=== PATIENT | female | born 1945 | race Caucasian/White ===

== ENCOUNTER 2022-01-29 18:01 | Emergency (ER) | payer MEDICARE, OTHER, SELFPAY ==
[2022-01-29] VITALS (9 sets, daily range): BP systolic 100–147; BP diastolic 52–98; PULSE 55–72; RESP 18; TEMP 36.7; O2SAT 92–97; BMI 24.0
--- NOTE | 2022-01-29 19:14 | CTR_ITS ---
PROCEDURE INFORMATION: Exam: CT Head Without Contrast Exam date and time: 01/29/2022 7:44 PM Age: 76 years old Clinical indication: Altered mental status/memory loss; Confusion or disorientation; Additional info: AMS TECHNIQUE: Imaging protocol: Computed tomography of the head without contrast. Radiation optimization: All CT scans at this facility use at least one of these dose optimization techniques: automated exposure control; mA and/or kV adjustment per patient size (includes targeted exams where dose is matched to clinical indication); or iterative reconstruction. COMPARISON: No relevant prior studies available. RADIATION DOSE METRICS: Total DLP (mGy-cm): 732.11 FINDINGS: Brain: There is marked cerebral atrophy. There is moderate diffuse heterogeneity of the white matter attenuation, consistent with chronic white matter ischemic changes. Negative for intracranial hemorrhage. No midline shift of the brain. [place] matter and white matter interfaces are preserved. Cerebral ventricles: No ventriculomegaly. Paranasal sinuses: Visualized sinuses are unremarkable. No fluid levels. Mastoid air cells: Visualized mastoid air cells are well aerated. Orbital cavities: Symmetry of the orbits. Lens replacements. Vasculature: Scattered intracranial atherosclerosis. Bones/joints: Degenerative changes of the temporomandibular joints. Soft tissues: Unremarkable. CT/CT head wo con* [id number] IMPRESSION: 1. Negative for acute intracranial abnormality. 2. Senescent brain changes.
--- NOTE | 2022-01-29 19:15 | ECG_ITS ---
[facility] Test Date: 2022-01-29 Pat Name: Katia Pearson Department: Room: Gender: Female [employer]: : 1945 Requested By: Simon Gilman Order Number: [id number] Luis MD: Elissa Maradiaga M.D. Measurements Intervals [place] Rate: 45 P: 56 NM: 184 QRS: 75 QRSD: 95 T: 71 QT: 454 QTc: 395 Interpretive Statements SINUS BRADYCARDIA No previous ECG available for comparison Electronically Signed On 01-30-2022 17:38:17 CDT by Elissa Maradiaga M.D. [id number]
--- NOTE | 2022-01-29 20:16 | ED_ITS ---
Documented by User: Simon Gilman MD 01/30/22 23:12 HPI - General Adult General: Chief complaint: Psychiatric Symptoms Stated complaint: PSYCH EVAL Time Seen by Provider: 01/29/22 19:14 History of Present Illness: HPI: [76]yo patient w/ hx of depression BIBA for statements of SI at the pharmacy after patient was denied pain medication refill. On arrival, the patient is AAOx3 and cooperative with my evaluation. No focal complaints of chest pain, shortness of breath, palpitations, N/V, focal GI/ complaints. Currently denies SI/HI. No complaints of hallucinations. Onset: chronic Duration: ongoing Location: home Severity: severe Associated symptoms: Deny chest pain, dyspnea, nausea, rash, palpitations or vomiting Review of Systems Const: Denies: fever(s) or chills Eyes: Denies: change in vision ENMT: Denies: mouth pain Card: Denies: chest pain or palpitations Resp: Denies: dyspnea or non-productive cough GI: Denies: abdominal pain, nausea, vomiting or diarrhea : Denies: dysuria Musc: Denies: extremity pain Skin/Breast: Denies: rash or new lesions Neuro: Denies: weakness in extremities Psych: Reports: other (Normal mood) Trevor/Lymph: Denies: easy bruising PFSH ED PFSH: Medical History Chronic pain Social History Smoking and tobacco status: never smoked Alcohol intake: never Physical Exam Const: COMMON NORMALS: alert HENMT: COMMON NORMALS: atraumatic HEAD & SCALP: atraumatic MOUTH: moist mucous membranes not abnormal Eye: COMMON NORMALS: EOMs intact bilaterally and conjunctivae normal CONJUNCTIVA: Yes conjunctivae normal Neck/C-Spine: COMMON NORMALS: full ROM and supple Resp: COMMON NORMALS: normal respiratory effort and clear to auscultation bilaterally AUSCULTATION: clear to auscultation bilaterally Cardio: COMMON NORMALS: regular rate RATE: regular rate GI: COMMON NORMALS: Soft to palpation and non-tender PALPATION: Yes Soft to palpation Extremity: COMMON NORMALS: full ROM Neuro: SENSORIUM/ORIENTATION: Yes alert MOTOR EXAM: No Abnormal motor strength present and Other motor observations present (no focal motor deficits) Psych: COMMON NORMALS: speech normal SPEECH: Yes normal speech MOOD & AFFECT: Yes euthymic mood Course Vital Signs: Vital signs: Vital Signs Temperature 97.7 F 01/30/22 09:39 Pulse Rate 81 01/30/22 17:30 Respiratory Rate 18 01/30/22 14:30 Blood Pressure 134/91 01/30/22 17:30 Pulse Oximetry 99 01/30/22 17:30 MDM - General Adult Medical Decision Making [76]yo patient w/ hx of chronic pain presenting for statements of SI after she was denied pain medicine refills. HDS, exam within normal limit Thoughts are linear and organized, and the patient has no AH/VH, or HI. Clinically the patient displays no overt toxidrome; they are well appearing, with low suspicion for toxic ingestion given history and exam. Symptoms unlikely 2/2 anemia, hypothyroidism, infection, or ICH. Workup: CBC, CMP, Lipase, salicylate/tylenol, TSH/free T4, EKG, UDS, covid antigen Lab findings: wnl, +opiate/marijuana/benzo in the urine [10:08] On reassessment, labs and workup wnl. Patient is hemodynamically stable with no acute medical complaints. Case discussed with psychiatric provider Dr. Deal at [facility] inpatient who evaluated patient via telepsych and recommended that I determine whether patient has any friend who can watch her overnight. I contacted Candy Morgan who tells me at the present time she cannot take care of the patient tonight. Patient tells me that she still has access to firearm. I performed a shared decision making with Dr. Deal who tells me that it is safer for patient to be admitted to [facility] at this time unless we can ensure that she has no access to firearm or a family member can watch over her. Disposition: Transfer to [facility] facility Patient care handoff received from Dr. Wright pending finalize recommendations by psychiatry service with likely plan for discharge. Dr. Deal with the psychiatry service did see and evaluate the patient. He does not believe, based on assessment, that the patient requires inpatient management of psychiatric concerns. In discussion with the patient she expresses that she made statements just out of frustration and has no intent/would never actually hurt herself or anyone else. In discussion with Dr. Deal and with the patient I did attempt to clarify that the patient's prescription problem. I talked to [facility] and apparently her hydrocodone?acetaminophen was mailed today. The ox ymorphone is missing a quantity to be dispensed and they have reached back out to the patient's prescribing physician. I did attempt to reach Dr. Rose however his office is closed and does not have a answering service. I explained the current status with the patient, she reports that she will attempt to manage at home and feels comfortable with discharge. Plan to follow-up with prescribing physician. Koko Molina MD Emergency Medicine Lab Data : 01/29/22 20:28 01/29/22 20: Radiology Impressions Head CT 01/29/22 19:14 IMPRESSION: 1. Negative for acute intracranial abnormality. 2. Senescent brain changes. Chest X-Ray 01/29/22 22:44 IMPRESSION: No acute findings. Laboratory Results WBC 7.9 10^3/uL (4.0-10.0) 01/29/22: RBC 4.23 10^6/uL (4.1-5.3) 01/29/22: Hgb 13.1 g/dL (11.5-15.3) 01/29/22: Hct 40.3 % (37.0-47.0) 01/29/22: MCV 95.3 fl (81-99) 01/29/22: MCH 31.0 pg (28.0-34.0) 01/29/22: MCHC 32.5 g/dL (30.0-36.0) 01/29/22: RDW 12.9 % (12.1-15.1) 01/29/22: Plt Count 204 10^3/cmm (130-400) 01/29/22: MPV 9.1 fL (7.4-10.4) 01/29/22: Neut % (Auto) 55.2 % 01/29/22: Lymph % (Auto) 35.2 % 01/29/22: [place] % (Auto) 6.6 % 01/29/22: Eos % (Auto) 1.9 % 01/29/22: Baso % (Auto) 0.8 % 01/29/22: Neut # (Auto) 4.34 10^3/uL (1.8-7.7) 01/29/22: Lymph # (Auto) 2.8 10^3/uL (0.8-4.8) 01/29/22: [place] # (Auto) 0.5 10^3/uL (0.2-0.9) 01/29/22 Eos # (Auto) 0.2 10^3/uL (0.0-0.8) 01/29/22 Baso # (Auto) 0.1 10^3/uL (0.0-0.1) 01/29/22 Nucleated RBC % (auto) 0 % 01/29/22 Nucleated RBCs # 0.0 /100WBC 01/29/22 Sodium 140 mmol/L (136-145) 01/29/22: Potassium 3.9 mmol/L (3.5-5.1) 01/29/22 Chloride 103 mmol/L (98-107) 01/29/22 Carbon Dioxide 26 mmol/L (22-29) 01/29/22: Anion Gap 14.9 (5-19) 01/29/22: BUN 9 mg/dL (8-23) 01/29/22 Creatinine 0.6 mg/dL (0.5-0.9) 01/29/22 GFR Calculation Not Reportable 01/29/22 Glucose 102 mg/dL (65-115) 01/29/22 Calculated Osmolality 289 mOsm/kg (285-295) 01/29/22 Calcium 9.1 mg/dL (8.5-10.5) 01/29/22 Total Bilirubin 0.5 mg/dL (0.15-1.2) 01/29/22 AST 13 U/L (0-32) 01/29/22 ALT 8 U/L (0-33) 01/29/22: Alkaline Phosphatase 85 IU/L (35-105) 01/29/22 Total Protein 7.1 g/dL (6.6-8.7) 01/29/22 Albumin 4.0 g/dL (3.5-5.2) 01/29/22 Globulin 3.1 g/dL (1.3-4.6) 01/29/22 Lipase 16 U/L (13-60) 01/29/22 TSH 1.73 uIU/mL (0.27-4.20) 01/29/22 Free T4 1.01 ng/dL (0.82-1.77) 01/29/22 Urine Color Yellow (Yellow) 01/29/22 Urine Appearance Hazy (CLEAR) A 01/29/22 Urine pH 5 (5-7) 01/29/22 Ur Specific [place] 1.020 (1.005-1.030) 01/29/22 Urine Protein Neg (Negative) 01/29/22 Urine Glucose (UA) Norm (Normal) 01/29/22 Urine Ketones 1+ (Negative) H 01/29/22 Urine Blood 2+ (Negative) H 01/29/22 Urine Nitrate Positive (Negative) H 01/29/22 Urine Bilirubin Neg (Negative) 01/29/22 Urine Urobilinogen Norm mg/dL (Negative) 01/29/22 Ur Leukocyte Esterase 1+ (Negative) H 01/29/22 Urine RBC 0-4 /hpf (0-2) H 01/29/22 Urine WBC 40-55 /hpf (0-5) H 01/29/22 Ur Squamous Epith Cells 5-10 /hpf (0-5) H 01/29/22 Amorphous Sediment Not Reportable 01/29/22 Urine Bacteria 4+ /hpf (NONE) H 01/29/22 Salicylates < 0.3 mg/dL (3-10) L 01/29/22 Urine Opiates Screen Positive ng/mL (Negative) H 01/29/22 Acetaminophen < 5.0 ug/mL (10-30) L 01/29/22 Ur Barbiturates Screen Negative ng/mL (Negative) 05/15/22 20:28 Ur Phencyclidine Scrn Negative ng/mL (Negative) 01/29/22 20:28 Ur Amphetamines Screen Negative ng/mL (Negative) 01/29/22 20:28 U Benzodiazepines Scrn Positive ng/mL (Negative) H 01/29/22 20:28 Urine Cocaine Screen Negative ng/mL (Negative) 01/29/22 20:28 U Marijuana (THC) Screen Positive ng/mL (Negative) H 01/29/22 20:28 SARS-CoV-2 Ag (Rapid) Negative (Negative) 01/29/22 20:35 Discharge Plan Discharge Patient Disposition: Home Clinical Impression: Verbalizes suicidal thoughts, Chronic pain, Acute UTI Prescriptions: New cefdinir 300 mg capsule 300 mg PO BID 10 Days Qty: 20 0RF No Action ondansetron HCl 4 mg tablet 4 mg PO Q6H PRN (Reason: Nausea And Vomiting) 0RF hydrocodone-acetaminophen 10-325 mg tablet 1 - 2 tab PO Q6H PRN (Reason: Pain) 0RF diazepam 10 mg tablet 10 mg PO BID PRN (Reason: Anxiety) 0RF oxymorphone 5 mg tablet 10 mg PO BEDTIME 0RF Discharge Orders: Discharge ED (Routine); Ordered 01/30/22 Ordered By: Koko Molina Discharge Diet: Usual diet Discharge Activity: Increase activity as tolerated Patient Instructions: Urinary Tract Infection in Women (ED), Chronic Pain (ED) Activity Restrictions/Additional Instructions: Thank you for visiting the emergency department. You were seen and evaluated for concern for suicidal statements. After evaluation by psychiatry I believe that it is safe for you to be discharged home. As discussed, [facility] reports that they mailed your hydrocodone?acetaminophen today. Please contact your prescribing provider tomorrow regarding the problem with your prescription. Please follow-up with your primary care provider. Please establish with a primary care provider if you do not currently have 1. Return to the emergency department for thoughts of hurting yourself or others, or anything else that you are concerned about a feel needs emergency department evaluation. Coding Level of Care Code ED Superintendent [employer] for [employer] Fwd Exam Comprehensive Documented by User: Osmany Wright DO 01/31/22 14:47 HPI - General Adult General: Chief complaint: Psychiatric Symptoms Stated complaint: PSYCH EVAL Time Seen by Provider: 01/29/22 19:14 [facility] ED PFSH: Medical History Chronic pain Social History Smoking and tobacco status: never smoked Alcohol intake: never Course Vital Signs: Vital signs: Vital Signs Temperature 97.7 F 01/30/22 09:39 Pulse Rate 81 01/30/22 17:30 Respiratory Rate 18 01/30/22 14:30 Blood Pressure 134/91 01/30/22 17:30 Pulse Oximetry 99 01/30/22 17:30 MDM - General Adult Medical Decision Making [76]yo patient w/ hx of chronic pain presenting for statements of SI after she was denied pain medicine refills. HDS, exam within normal limit Thoughts are linear and organized, and the patient has no AH/VH, or HI. Clinically the patient displays no overt toxidrome; they are well appearing, with low suspicion for toxic ingestion given history and exam. Symptoms unlikely 2/2 anemia, hypothyroidism, infection, or ICH. Workup: CBC, CMP, Lipase, salicylate/tylenol, TSH/free T4, EKG, UDS, covid anti gen Lab findings: wnl, +opiate/marijuana/benzo in the urine [10:08] On reassessment, labs and workup wnl. Patient is hemodynamically stable with no acute medical complaints. Case discussed with psychiatric provider Dr. Deal at [facility] inpatient who evaluated patient via telepsy ch and recommended that I determine whether patient has any friend who can watch her overnight. I contacted Candy Mora who tells me at the present time she cannot take care of the patient tonight. Patient tells me that she still has access to firearm. I performed a shared decision making with Dr. Deal who tells me that it is safer for patient to be admitted to [facility] at this time unless we can ensure that she has no access to firearm or a family member can watch over her. Disposition: Transfer to [facility] facility We have been attempting to transfer to [facility]. Psych consult recommended that we could potentially send the patient home if we met certain criteria. Were getting is clarified they are wanting us to ensure that there is no firearms in the home and that her medications have been arranged for her. Care turned over to Dr. Walton change of shift. Patient care handoff received from Dr. Wright pending finalized recommendations by psychiatry service with likely plan for discharge. Dr. Deal with the psychiatry service did see and evaluate the patient. He does not believe, based on assessment, that the patient requires inpatient management of psychiatric concerns. In discussion with the patient she expresses that she made statements just out of frustration and has no intent/would never actually hurt herself or anyone else. I agree that she is not currently suicidal. I did attempt to clarify that the patient's prescription problem. I talked to [facility] and apparently her hydrocodone?acetaminophen was mailed today. The oxymorphone is missing a quantity to be dispensed and they have reached back out to the patient's prescribing physician. I did attempt to reach Dr. Rose however his office is closed and does not have a answering service. I explained the current status with the patient, she reports that she will attempt to fallon ge at home and feels comfortable with discharge. She denies suicidal or homicidal ideation. Firearms have reportedly been removed from her house by her friend. Plan to follow-up with prescribing physician. Koko Molina MD Emergency Medicine Lab Data : 01/29/22 20:28 01/29/22 20:[address] 01/29/22 19:14 IMPRESSION: 1. Negative for acute intracranial abnormality. 2. Senescent brain changes. Chest X-Ray 01/29/22 22:44 IMPRESSION: No acute findings. Laboratory Results WBC 7.9 10^3/uL (4.0-10.0) 01/29/22 20:28 RBC 4.23 10^6/uL (4.1-5.3) 01/29/22 20:28 Hgb 13.1 g/dL (11.5-15.3) 01/29/22 20:28 Hct 40.3 % (37.0-47.0) 01/29/22 20: MCV 95.3 fl (81-99) 01/29/22 20:28 MCH 31.0 pg (28.0-34.0) 01/29/22 MCHC 32.5 g/dL (30.0-36.0) 01/29/22 RDW 12.9 % (12.1-15.1) 01/29/22 Plt Count 204 10^3/cmm (130-400) 01/29/22 MPV 9.1 fL (7.4-10.4) 01/29/22 Neut % (Auto) 55.2 % 01/29/22 Lymph % (Auto) 35.2 % 01/29/22 [place] % (Auto) 6.6 % 01/29/22 Eos % (Auto) 1.9 % 01/29/22 Baso % (Auto) 0.8 % 01/29/22 Neut # (Auto) 4.34 10^3/uL (1.8-7.7) 01/29/22 Lymph # (Auto) 2.8 10^3/uL (0.8-4.8) 01/29/22 [place] # (Auto) 0.5 10^3/uL (0.2-0.9) 01/29/22 Eos # (Auto) 0.2 10^3/uL (0.0-0.8) 01/29/22 Baso # (Auto) 0.1 10^3/uL (0.0-0.1) 01/29/22 Nucleated RBC % (auto) 0 % 01/29/22 Nucleated RBCs # 0.0 /100WBC 01/29/22 Sodium 140 mmol/L (136-145) 01/29/22 Potassium 3.9 mmol/L (3.5-5.1) 01/29/22 Chloride 103 mmol/L (98-107) 01/29/22 Carbon Dioxide 26 mmol/L (22-29) 01/29/22 Anion Gap 14.9 (5-19) 01/29/22 BUN 9 mg/dL (8-23) 01/29/22 Creatinine 0.6 mg/dL (0.5-0.9) 01/29/22 GFR Calculation Not Reportable 01/29/22 Glucose 102 mg/dL (65-115) 01/29/22 Calculated Osmolality 289 mOsm/kg (285-295) 01/29/22 Calcium 9.1 mg/dL (8.5-10.5) 01/29/22 Total Bilirubin 0.5 mg/dL (0.15-1.2) 01/29/22 AST 13 U/L (0-32) 01/29/22 ALT 8 U/L (0-33) 01/29/22 Alkaline Phosphatase 85 IU/L (35-105) 01/29/22 Total Protein 7.1 g/dL (6.6-8.7) 01/29/22 Albumin 4.0 g/dL (3.5-5.2) 01/29/22 Globulin 3.1 g/dL (1.3-4.6) 01/29/22 Lipase 16 U/L (13-60) 01/29/22 TSH 1.73 uIU/mL (0.27-4.20) 01/29/22 Free T4 1.01 ng/dL (0.82-1.77) 01/29/22 Urine Color Yellow (Yellow) 01/29/22 Urine Appearance Hazy (CLEAR) A 01/29/22 Urine pH 5 (5-7) 01/29/22 Ur Specific [place] 1.020 (1.005-1.030) 01/29/22 Urine Protein Neg (Negative) 01/29/22 Urine Glucose (UA) Norm (Normal) 01/29/22 Urine Ketones 1+ (Negative) H 01/29/22 Urine Blood 2+ (Negative) H 01/29/22 Urine Nitrate Positive (Negative) H 01/29/22 Urine Bilirubin Neg (Negative) 01/29/22 Urine Urobilinogen Norm mg/dL (Negative) 05/15/22 20:28 Ur Leukocyte Esterase 1+ (Negative) H 01/29/22 20:28 Urine RBC 0-4 /hpf (0-2) H 01/29/22 20:28 Urine WBC 40-55 /hpf (0-5) H 01/29/22 20:28 Ur Squamous Epith Cells 5-10 /hpf (0-5) H 01/29/22 20:28 Amorphous Sediment Not Reportable 01/29/22 20:28 Urine Bacteria 4+ /hpf (NONE) H 01/29/22 20:28 Salicylates < 0.3 mg/dL (3-10) L 01/29/22 20:28 Urine Opiates Screen Positive ng/mL (Negative) H 01/29/22 20:28 Acetaminophen < 5.0 ug/mL (10-30) L 01/29/22 20:28 Ur Barbiturates Screen Negative ng/mL (Negative) 01/29/22 20:28 Ur Phencyclidine Scrn Negative ng/mL (Negative) 01/29/22 20:28 Ur Amphetamines Screen Negative ng/mL (Negative) 01/29/22 20:28 U Benzodiazepines Scrn Positive ng/mL (Negative) H 01/29/22 20:28 Urine Cocaine Screen Negative ng/mL (Negative) 01/29/22 20:28 U Marijuana (THC) Screen Positive ng/mL (Negative) H 01/29/22 20:28 SARS-CoV-2 Ag (Rapid) Negative (Negative) 01/29/22 20:35 Discharge Plan Discharge Patient Disposition: Home Clinical Impression: Verbalizes suicidal thoughts, Chronic pain, Acute UTI Prescriptions: New cefdinir 300 mg capsule 300 mg PO BID 10 Days Qty: 20 0RF No Action ondansetron HCl 4 mg tablet 4 mg PO Q6H PRN (Reason: Nausea And Vomiting) 0RF hydrocodone-acetaminophen 10-325 mg tablet 1 - 2 tab PO Q6H PRN (Reason: Pain) 0RF diazepam 10 mg tablet 10 mg PO BID PRN (Reason: Anxiety) 0RF oxymorphone 5 mg tablet 10 mg PO BEDTIME 0RF Discharge Orders: Discharge ED (Routine); Ordered 01/30/22 Ordered By: Koko Molina Discharge Diet: Usual diet Discharge Activity: Increase activity as tolerated Patient Instructions: Urinary Tract Infection in Women (ED), Chronic Pain (ED) Activity Restrictions/Additional Instructions: Thank you for visiting the emergency department. You were seen and evaluated for concern for suicidal statements. After evaluation by psychiatry I believe that it is safe for you to be discharged home. As discussed, [facility] reports that they mailed your hydrocodone?acetaminophen today. Please contact your prescribing provider tomorrow regarding the problem with your prescription. Please follow-up with your primary care provider. Please establish with a primary care provider if you do not currently have 1. Return to the emergency department for thoughts of hurting yourself or others, or anything else that you are concerned about a feel needs emergency department evaluation. Coding Level of Care Code ED Superintendent [employer] for Chg Fwd Exam Comprehensive Documented by User: Koko Molina MD 01/31/22 07:48 HPI - General Adult General: Chief complaint: Psychiatric Symptoms Stated complaint: PSYCH EVAL Time Seen by Provider: 01/29/22 19:14 [facility] ED PFSH: Medical History Chronic pain Social History Smoking and tobacco status: never smoked Alcohol intake: never Course Vital Signs: Vital signs: Vital Signs Temperature 97.7 F 01/30/22 09:39 Pulse Rate 81 01/30/22 17:30 Respiratory Rate 18 01/30/22 14:30 Blood Pressure 134/91 01/30/22 17:30 Pulse Oximetry 99 01/30/22 17:30 MDM - General Adult Medical Decision Making [76]yo patient w/ hx of chronic pain presenting for statements of SI after she was denied pain medicine refills. HDS, exam within normal limit Thoughts are linear and organized, and the patient has no AH/VH, or HI. Clinically the patient displays no overt toxidrome; they are well appearing, with low suspicion for toxic ingestion given history and exam. Symptoms unlikely 2/2 anemia, hypothyroidism, infection, or ICH. Workup: CBC, CMP, Lipase, salicylate/tylenol, TSH/free T4, EKG, UDS, covid antigen Lab findings: wnl, +opiate/marijuana/benzo in the urine [10:08] On reassessment, labs and workup wnl. Patient is hemodynamically stable with no acute medical complaints. Case discussed with psychiatric provider Dr. Deal at [facility] inpatient who evaluated patient via telepsych and recommended that I determine whether patient has any friend who can watch her overnight. I contacted Candy Mora who tells me at the present time she cannot take care of the patient tonight. Patient tells me that she still has access to firearm. I performed a shared decision making with Dr. Deal who tells me that it is safer for patient to be admitted to [facility] at this time unless we can ensure that she has no access to firearm or a family member can watch over her. Disposition: Transfer to [facility] facility Patient care handoff received from Dr. Wright pending finalized celia mmendations by psychiatry service with likely plan for discharge. Dr. Deal with the psychiatry service did see and evaluate the patient. He does not believe, based on assessment, that the patient requires inpatient management of psychiatric concerns. In discussion with the patient she expresses that she made statements just out of frustration and has no intent/would never actually hurt herself or anyone else. I agree that she is not currently suicidal. I did attempt to clarify that the patient's prescription problem. I talked to [facility] and apparently her hydrocodone?acetaminophen was mailed today. The oxymorphone is missing a quantity to be dispensed and they have reached back out to the patient's prescribing physician. I did attempt to reach Dr. Rose however his office is closed and does not have a answering service. I explained the current status with the patient, she reports that she will attempt to manage at home and feels comfortable with discharge. She denies suicidal or homicidal ideation. Firearms have reportedly been removed from her house by her friend. Plan to follow-up with prescribing physician. Koko Molina MD Emergency Medicine Lab Data : 01/29/22 20:28 01/29/22 20:[address] 01/29/22 19:14 IMPRESSION: 1. Negative for acute intracranial abnormality. 2. Senescent brain changes. Chest X-Ray 01/29/22 22:44 IMPRESSION: No acute findings. Laboratory Results WBC 7.9 10^3/uL (4.0-10.0) 01/29/22 RBC 4.23 10^6/uL (4.1-5.3) 01/29/22 Hgb 13.1 g/dL (11.5-15.3) 01/29/22 Hct 40.3 % (37.0-47.0) 01/29/22 MCV 95.3 fl (81-99) 01/29/22 MCH 31.0 pg (28.0-34.0) 01/29/22 MCHC 32.5 g/dL (30.0-36.0) 01/29/22 RDW 12.9 % (12.1-15.1) 01/29/22 Plt Count 204 10^3/cmm (130-400) 01/29/22 MPV 9.1 fL (7.4-10.4) 01/29/22 Neut % (Auto) 55.2 % 01/29/22: Lymph % (Auto) 35.2 % 01/29/22 [place] % (Auto) 6.6 % 01/29/22 Eos % (Auto) 1.9 % 01/29/22 Baso % (Auto) 0.8 % 01/29/22 Neut # (Auto) 4.34 10^3/uL (1.8-7.7) 01/29/22 Lymph # (Auto) 2.8 10^3/uL (0.8-4.8) 01/29/22 [place] # (Auto) 0.5 10^3/uL (0.2-0.9) 01/29/22 Eos # (Auto) 0.2 10^3/uL (0.0-0.8) 01/29/22 Baso # (Auto) 0.1 10^3/uL (0.0-0.1) 01/29/22 Nucleated RBC % (auto) 0 % 01/29/22 Nucleated RBCs # 0.0 /100WBC 01/29/22 20: Sodium 140 mmol/L (136-145) 01/29/22: Potassium 3.9 mmol/L (3.5-5.1) 01/29/22: Chloride 103 mmol/L (98-107) 01/29/22: Carbon Dioxide 26 mmol/L (22-29) 01/29/22 Anion Gap 14.9 (5-19) 01/29/22 BUN 9 mg/dL (8-23) 01/29/22 Creatinine 0.6 mg/dL (0.5-0.9) 01/29/22 GFR Calculation Not Reportable 01/29/22 Glucose 102 mg/dL (65-115) 01/29/22 Calculated Osmolality 289 mOsm/kg (285-295) 01/29/22 Calcium 9.1 mg/dL (8.5-10.5) 01/29/22 Total Bilirubin 0.5 mg/dL (0.15-1.2) 01/29/22 AST 13 U/L (0-32) 01/29/22 ALT 8 U/L (0-33) 01/29/22 Alkaline Phosphatase 85 IU/L (35-105) 01/29/22 Total Protein 7.1 g/dL (6.6-8.7) 01/29/22 Albumin 4.0 g/dL (3.5-5.2) 01/29/22 Globulin 3.1 g/dL (1.3-4.6) 01/29/22 Lipase 16 U/L (13-60) 01/29/22 TSH 1.73 uIU/mL (0.27-4.20) 01/29/22 Free T4 1.01 ng/dL (0.82-1.77) 01/29/22 Urine Color Yellow (Yellow) 01/29/22 Urine Appearance Hazy (CLEAR) A 01/29/22: Urine pH 5 (5-7) 05/15/22 20:28 Ur Specific [place] 1.020 (1.005-1.030) 01/29/22 20: Urine Protein Neg (Negative) 01/29/22 20: Urine Glucose (UA) Norm (Normal) 01/29/22 20: Urine Ketones 1+ (Negative) H 01/29/22 20: Urine Blood 2+ (Negative) H 01/29/22 20: Urine Nitrate Positive (Negative) H 01/29/22 20: Urine Bilirubin Neg (Negative) 01/29/22 20: Urine Urobilinogen Norm mg/dL (Negative) 01/29/22 20: Ur Leukocyte Esterase 1+ (Negative) H 01/29/22 20: Urine RBC 0-4 /hpf (0-2) H 01/29/22 20: Urine WBC 40-55 /hpf (0-5) H 01/29/22 20: Ur Squamous Epith Cells 5-10 /hpf (0-5) H 01/29/22 20: Amorphous Sediment Not Reportable 01/29/22 20: Urine Bacteria 4+ /hpf (NONE) H 01/29/22 20: Salicylates < 0.3 mg/dL (3-10) L 01/29/22 20: Urine Opiates Screen Positive ng/mL (Negative) H 01/29/22 20: Acetaminophen < 5.0 ug/mL (10-30) L 01/29/22 20: Ur Barbiturates Screen Negative ng/mL (Negative) 01/29/22 20: Ur Phencyclidine Scrn Negative ng/mL (Negative) 01/29/22 20: Ur Amphetamines Screen Negative ng/mL (Negative) 01/29/22 20: U Benzodiazepines Scrn Positive ng/mL (Negative) H 01/29/22 20: Urine Cocaine Screen Negative ng/mL (Negative) 01/29/22 20: U Marijuana (THC) Screen Positive ng/mL (Negative) H 01/29/22 20: SARS-CoV-2 Ag (Rapid) Negative (Negative) 01/29/22 20: Discharge Plan Discharge Patient Disposition: Home Clinical Impression: Verbalizes suicidal thoughts, Chronic pain, Acute UTI Prescriptions: New cefdinir 300 mg capsule 300 mg PO BID 10 Days Qty: 20 0RF No Action ondansetron HCl 4 mg tablet 4 mg PO Q6H PRN (Reason: Nausea And Vomiting) 0RF hydrocodone-acetaminophen 10-325 mg tablet 1 - 2 tab PO Q6H PRN (Reason: Pain) 0RF diazepam 10 mg tablet 10 mg PO BID PRN (Reason: Anxiety) 0RF oxymorphone 5 mg tablet 10 mg PO BEDTIME 0RF Discharge Orders: Discharge ED (Routine); Ordered 01/30/22 Ordered By: Koko Molina Discharge Diet: Usual diet Discharge Activity: Increase activity as tolerated Patient Instructions: Urinary Tract Infection in Women (ED), Chronic Pain (ED) Activity Restrictions/Additional Instructions: Thank you for visiting the emergency department. You were seen and evaluated for concern for suicidal statements. After evaluation by psychiatry I believe that it is safe for you to be discharged home. As discussed, [facility] reports that they mailed your hydrocodone?acetaminophen today. Please contact your prescribing provider tomorrow regarding the problem with your prescription. Please follow-up with your primary care provider. Please establish with a primary care provider if you do not currently have 1. Return to the emergency department for thoughts of hurting yourself or others, or anything else that you are concerned about a feel needs emergency department evaluation. Coding Level of Care Code ED Superintendent [employer] for Jamila Fwblake Exam Comprehensive
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
[2022-01-29 20:48] LABS: Basophils # 0.1 10^3/uL (0.0-0.1); Basophils % 0.8 %; Eosinophils # 0.2 10^3/uL (0.0-0.8); Eosinophils % 1.9 %; Hematocrit 40.3 % (37.0-47.0); Hemoglobin 13.1 g/dL (11.5-15.3); Lymphocytes # 2.8 10^3/uL (0.8-4.8); Lymphocytes % 35.2 %; Mean Corpuscular HGB Conc 32.5 g/dL (30.0-36.0); Mean Corpuscular Volume 95.3 fl (81-99); Mean Platelet Volume 9.1 fL (7.4-10.4); Monocytes # 0.5 10^3/uL (0.2-0.9); Monocytes % 6.6 %; Neutrophils # 4.34 10^3/uL (1.8-7.7); Neutrophils % 55.2 %; Nucleated Red Blood Cells % 0 %; Platelet Count 204 10^3/cmm (130-400); Red Blood Count 4.23 10^6/uL (4.1-5.3); Red Cell Distribution Width 12.9 % (12.1-15.1); White Blood Count 7.9 10^3/uL (4.0-10.0)
[2022-01-29 20:58] LABS: Add Urine Culture? Yes; Add Urine Microscopic? YES; Bacteria Urine 4+ /hpf; Bilirubin Urine Neg (Negative); Blood Urine 2+ (Negative); Glucose Urine UA Norm (Normal); Ketones Urine 1+ (Negative); Leukocyte Esterase Urine 1+ (Negative); Nitrate Urine Positive (Negative); Protein Urine Neg (Negative); RBC Urine 0-4 /hpf (0-2); Urine Appearance Hazy (CLEAR); Urine Color Yellow (Yellow); Urobilinogen Urine Norm (Negative); WBC Urine 40-55 /hpf (0-5); pH Urine 5 (5-7)
[2022-01-29 21:01] LABS: Amphetamines Screen Urine Negative (Negative); Barbiturates Screen Urine Negative (Negative); Benzodiazepines Screen Urine Positive (Negative); Cocaine Screen Urine Negative (Negative); Opiate Screen Urine Positive (Negative); PCP Screen Urine Negative (Negative); THC Screen Urine Positive (Negative)
[2022-01-29 21:20] LABS: Acetaminophen < 5.0 ug/mL (10-30); Alanine Aminotransferase 8 U/L (0-33); Alkaline Phosphatase 85 IU/L (35-105); Anion Gap 14.9 (5-19); Aspartate Amino Transferase 13 U/L (0-32); Blood Urea Nitrogen 9 mg/dL (8-23); Calcium 9.1 mg/dL (8.5-10.5); Carbon Dioxide 26 mmol/L (22-29); Chloride 103 mmol/L (98-107); Globulin 3.1 g/dL (1.3-4.6); Glucose 102 mg/dL (65-115); Lipase 16 U/L (13-60); Osmolality Calculated 289 mOsm/kg (285-295); Potassium 3.9 mmol/L (3.5-5.1); Salicylate < 0.3 mg/dL (3-10); Sodium 140 mmol/L (136-145); Thyroid Stimulating Hormone 1.73 uIU/mL (0.27-4.20); Total Bilirubin 0.5 mg/dL (0.15-1.2); Total Protein 7.1 g/dL (6.6-8.7)
[2022-01-29 21:56] LABS: SARS Covid-2 Antigen Negative (Negative)
[2022-01-29 22:44] LABS: Free T4 Free Thyroxine 1.01 ng/dL (0.82-1.77)
--- NOTE | 2022-01-29 22:44 | XRR_ITS ---
PROCEDURE INFORMATION: Exam: XR Chest Exam date and time: 01/29/2022 11:09 PM Age: 76 years old Clinical indication: Screening exam; Other screening; Additional info: Psych clearance TECHNIQUE: Imaging protocol: XR of the chest. Views: 1 view. COMPARISON: No relevant prior studies available. FINDINGS: Lungs: Unremarkable. No consolidation. Pleural spaces: Unremarkable. No pleural effusion. No pneumothorax. Heart/Mediastinum: Unremarkable. No cardiomegaly. Bones/joints: Advanced degenerative joint changes in both shoulders. Surgical anchor within proximal right humerus. No acute thoracic fracture. XR/XR chest 1V portable [id number] IMPRESSION: No acute findings.
[2022-01-30] VITALS (23 sets, daily range): BP systolic 92–148; BP diastolic 53–91; PULSE 50–94; RESP 16–20; TEMP 36.5; O2SAT 93–99
[2022-01-30] MEDS: cefdinir 300 MG CAPSULE PO (07:24)
--- NOTE | 2022-01-30 19:14 | PC.NURSE ---
Nurse called Candy Mora,the person the patient wanted to take the firearms, who had earlier stated she would remove all the firearms out of patients home and secure them at her residence. Candy verified she had removed the firearms from Katia Pearson's house, Dr was notified of this.
[2022-01-30] MEDS: acetaminophen 500 mg Tablet 1000 MG PO (20:00)
== END 2022-01-30 23:05 | disposition home or self-care (01) ==
PROVIDERS: Emergency Medicine; Emergency Provider Emergency Medicine
DX: F43.25 Adjustment disorder with mixed disturbance of emotions and conduct (principal); R45.851 Suicidal ideations; G89.29 Other chronic pain; N39.0 Urinary tract infection, site not specified; Z86.59 Personal history of other mental and behavioral disorders; Z79.899 Other long term (current) drug therapy; Z91.419 Personal history of unspecified adult abuse; Z62.819 Personal history of unspecified abuse in childhood; Z81.8 Family history of other mental and behavioral disorders; Z81.4 Family history of other substance abuse and dependence
CPT/HCPCS: 70450; 71045; 80053; 80306; 80307; 81001; 83690; 84439; 84443; 85025; 87077; 87086; 87186; 87426; 93005; 99285

== ENCOUNTER 2023-03-18 13:58 | Emergency (ER) | payer MEDICARE, OTHER, SELFPAY ==
[2023-03-18 13:59] VITALS: BP 100/64; PULSE 87; RESP 16; TEMP 37.1; O2SAT 95
--- NOTE | 2023-03-18 14:05 | XRR_ITS ---
PROCEDURE INFORMATION: Exam: XR Right Shoulder Exam date and time: 03/18/2023 2:11 PM Age: 77 years old Clinical indication: Pain; Shoulder; Right; Additional info: Fall TECHNIQUE: Imaging protocol: Radiologic exam of the right shoulder. Views: 2 or more views. COMPARISON: CR XR chest 1V portable [id number] 01/29/2022 11:09 PM FINDINGS: Bones/joints: There are severe degenerative changes across the acromioclavicular joint. There is an anchor screw in the humeral head consistent with prior rotator cuff tendon repair. 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 Humeral head and glenoid are irregular in contour likely a result of the severe degenerative change and no definite acute fracture is seen. Soft tissues: Ill-defined osseous densities in the region of the inferior joint recess may represent loose bodies. XR/XR shoulder RT min 2V* [id number] IMPRESSION: 1. Humeral head and glenoid are irregular in contour which is likely a result of the severe degenerative change across the glenohumeral joint. No definite acute fracture is seen. 2. There are severe degenerative changes across the acromioclavicular and glenohumeral joints. 3. Ill-defined osseous densities in the region of the inferior joint recess may represent loose bodies.
--- NOTE | 2023-03-18 14:05 | CTR_ITS ---
PROCEDURE INFORMATION: Exam: CT Cervical Spine Without Contrast Exam date and time: 03/18/2023 2:17 PM Age: 77 years old Clinical indication: Injury or trauma; Fall; Blunt trauma TECHNIQUE: Imaging protocol: Computed tomography of the cervical spine without contrast. Radiation optimization: All CT scans at this facility use at least one of these dose optimization techniques: automated exposure control; mA and/or kV adjustment per patient size (includes targeted exams where dose is matched to clinical indication); or iterative reconstruction. REPORTING DATA: Count of CT and Cardiac NM exams in prior 12 months: This patient has received 0 known CTs and 0 known cardiac nuclear medicine studies in the 12 months prior to the current study. COMPARISON: CT head wo con* [id number] 01/29/2022 7:44 PM RADIATION DOSE METRICS: Total DLP (mGy-cm): 158.7 FINDINGS: Bones/joints: There are severe degenerative changes throughout the visualized spine including marginal osteophyte formations, endplate degenerative changes, and facet arthropathy. Multilevel disc space narrowing. There are multilevel broad-based disc osteophyte complexes which indent the anterior thecal sac and result in varying degrees of bilateral neuroforamina narrowing. Mild grade 1 degenerative anterolisthesis of C7 on T1 and of T1 on T2. Lungs: Lung apices are normal. Soft tissues: There are benign-appearing soft tissue calcifications. CT/CT cervical spin wo con* [id number] IMPRESSION: There are degenerative changes as described above. No evidence for acute fracture.
--- NOTE | 2023-03-18 14:05 | CTR_ITS ---
PROCEDURE INFORMATION: Exam: CT Head Without Contrast Exam date and time: 03/18/2023 2:17 PM Age: 77 years old Clinical indication: Injury or trauma; Fall; Blunt trauma (contusions or hematomas) TECHNIQUE: Imaging protocol: Computed tomography of the head without contrast. Radiation optimization: All CT scans at this facility use at least one of these dose optimization techniques: automated exposure control; mA and/or kV adjustment per patient size (includes targeted exams where dose is matched to clinical indication); or iterative reconstruction. REPORTING DATA: Count of CT and Cardiac NM exams in prior 12 months: This patient has received 0 known CTs and 0 known cardiac nuclear medicine studies in the 12 months prior to the current study. COMPARISON: CT head wo con* [id number] 01/29/2022 7:44 PM RADIATION DOSE METRICS: Total DLP (mGy-cm): 1087.52 FINDINGS: Brain: There is diffuse cerebral atrophy present, consistent with this patient's age. Periventricular and subcortical white matter low densities are present which at this age likely represent microvascular ischemic change. There are chronic lacunar infarcts in the internal capsules.Benign globus pallidus calcifications are present. No evidence for large acute ischemic infarction. Please note acute ischemia can be occult by head CT. No evidence for acute intracranial hemorrhage. Cerebral ventricles: No ventriculomegaly. Paranasal sinuses: There is a tiny air-fluid level in the left maxillary sinus consistent with acute sinusitis. Mastoid air cells: Visualized mastoid air cells are well aerated. Bones/joints: There are severe degenerative changes across the temporomandibular joints. Soft tissues: Unremarkable. Vasculature: Calcified plaque is present within the carotid siphons. CT/CT head wo con* [id number] IMPRESSION: 1. Impression.There are senescent changes of the brain as described above. No evidence for large acute ischemic infarction or acute intracranial injury. Acute left maxillary sinusitis. 2. There are senescent changes of the brain as described above. No evidence for large acute ischemic infarction or acute intracranial injury.
--- NOTE | 2023-03-18 14:06 | W.ED.FALL ---
HPI - Fall General: Chief Complaint: Fall Stated Complaint: FALL Time Seen by Provider: 03/18/23 14:01 Source: patient and EMS Mode of arrival: EMS Limitations: no limitations History of Present Illness: 77-year-old female is states she was in her wheelchair today states that she slipped fell forward and hit her head on the table. States she has a headache along with some neck pain. She denies any other injuries. She rates her pain currently a 5 out of 10. She denies fever. Associated symptoms-after fall: Reports headache(s) and neck pain; Denies abdominal pain or chest pain Review of Systems Const: Denies: fever(s) or chills Eyes: Denies: eye discomfort ENMT: Denies: throat pain or dental pain Card: Denies: chest pain Resp: Denies: dyspnea GI: Denies: abdominal pain, nausea, vomiting or diarrhea Musc: Reports: neck pain; Denies: back pain Skin/Breast: Denies: rash Neuro: Reports: headache(s) [facility] ED PFSH: Medical History Chronic pain Social History Smoking and tobacco status: never smoked Alcohol intake: never Substance/Drug Use: never Physical Exam Const: COMMON NORMALS: no acute distress, patient oriented x3 and healthy appearing HENMT: COMMON NORMALS: head/scalp not atraumatic HEAD & SCALP: not atraumatic OTHER: tenderness to forehead Eye: COMMON NORMALS: conjunctivae normal CONJUNCTIVA: Yes conjunctivae normal Neck/C-Spine: OTHER: in c collar Chest: COMMONS NORMALS: normal inspection of the chest and normal palpation of entire chest wall Resp: COMMON NORMALS: normal respiratory effort, No retractions, No use of accessory muscles and clear to auscultation bilaterally AUSCULTATION: clear to auscultation bilaterally Cardio: COMMON NORMALS: regular rate, regular rhythm and No murmurs present (Cardio) RATE: regular rate RHYTHM: regular rhythm GI: COMMON NORMALS: Normal to inspection, nondistended, normoactive bowel sounds present, Soft to palpation, non-tender and no masses PALPATION: Yes Soft to palpation Extremity: COMMON NORMALS: normal to inspection and full ROM Neuro: COMMON NORMALS: patient oriented x3, moves all extremities and no focal motor deficits Psych: COMMON NORMALS: mental status grossly normal, Normal thought process present and cooperative THOUGHT PROCESS: Normal thought process present Skin: COMMON NORMALS: no rashes or lesions noted and no wounds GENERAL SKIN EXAM: no rashes or lesions noted Course Vital Signs: Vital signs: Vital Signs Temperature 98.8 F 03/18/23 13:59 Pulse Rate 89 03/18/23 15:28 Respiratory Rate 16 03/18/23 13:59 Blood Pressure 100/64 03/18/23 13:59 Pulse Oximetry 96 03/18/23 15:28 Oxygen Delivery Me thod Room Air 03/18/23 13:59 MDM - Fall Medical Decision Making Patient presents here with closed head injury from a fall head CT neck CT here are normal she had some hip and shoulder pain x-rays show no acute findings she is stable for discharge she is followed with PCP and return if worsening. Medical Records I reviewed the patient's medical records. Lab Data I reviewed the patient's lab results. Radiology Impressions Cervical Spine CT 03/18/23 14:05 IMPRESSION: There are degenerative changes as described above. No evidence for acute fracture. Head CT 03/18/23 14:05 IMPRESSION: 1. Impression.There are senescent changes of the brain as described above. No evidence for large acute ischemic infarction or acute intracranial injury. Acute left maxillary sinusitis. 2. There are senescent changes of the brain as described above. No evidence for large acute ischemic infarction or acute intracranial injury. Shoulder X-Ray 03/18/23 14:05 IMPRESSION: 1. Humeral head and glenoid are irregular in contour which is likely a result of the severe degenerative change across the glenohumeral joint. No definite acute fracture is seen. 2. There are severe degenerative changes across the acromioclavicular and glenohumeral joints. 3. Ill-defined osseous densities in the region of the inferior joint recess may represent loose bodies. Discharge Plan Discharge Patient Disposition: Home Clinical Impression: CHI (closed head injury) Condition: Stable Prescriptions: No Action ondansetron HCl 4 mg tablet 4 mg PO Q6H PRN (Reason: Nausea And Vomiting) hydrocodone-acetaminophen 10-325 mg tablet 1 - 2 tab PO Q6H PRN (Reason: Pain) diazepam 10 mg tablet 10 mg PO BID PRN (Reason: Anxiety) multivitamin Tablet 1 tab PO DAILY Vitamin D3 25 mcg (1,000 unit) Tablet 25 mcg PO DAILY vitamin K2 100 mcg Capsule 100 mcg PO DAILY Lots Of Otc Minerals And Herbs See Rx Instructions .ROUTE .COMPLEX Rx Instructions: see pharmacy comment Discharge Orders: Discharge ED (Routine); Ordered 03/18/23 Ordered By: Mike Green Discharge Diet: Advance as tolerated Discharge Activity: Resume usual activity Patient Instructions: Head Injury (ED) Coding Level of Care Code ED Centrifugal Spinner for Jamila Block
--- NOTE | 2023-03-18 14:54 | XRR_ITS ---
PROCEDURE INFORMATION: Exam: XR Pelvis Exam date and time: 03/18/2023 3:00 PM Age: 77 years old Clinical indication: Hip pain; Right hip TECHNIQUE: Imaging protocol: Radiologic exam of the pelvis. Views: 1 or 2 view. COMPARISON: No relevant prior studies available. FINDINGS: Bones/joints: There are very severe degenerative changes across the right hip joint including subchondral cystic/sclerotic changes, complete loss of the joint space, and marginal osteophyte formations. There is flattening of the acetabulum and femoral head likely representing chronic insufficiency fractures. No definite acute fracture is seen. Small marginal osteophytes are present across the left hip joint. Mild narrowing of the left hip joint space. Apge-[id number]-xazjyrzb degenerative changes across the sacroiliac joints and pubic symphysis. There are degenerative changes in the visualized lower lumbar spine. Soft tissues: Unremarkable. XR/XR pelvis 1-2V* [id number] IMPRESSION: There are very severe degenerative changes across the right hip joint with flattening of the acetabulum and femoral head likely representing chronic insufficiency fractures. No definite acute fractures are seen.
--- NOTE | 2023-03-18 14:54 | XRR_ITS ---
PROCEDURE INFORMATION: Exam: XR Right Hip Exam date and time: 03/18/2023 3:05 PM Age: 77 years old Clinical indication: Hip pain; Right hip TECHNIQUE: Imaging protocol: Radiologic exam of the right hip. Views: 1 view hip with pelvis when performed. COMPARISON: CR (PELVIS, ) 03/18/2023 3:00 PM FINDINGS: Bones/joints: Very severe degenerative changes are present across the right hip joint including loss of the joint space, marginal osteophyte formations, subchondral cystic/sclerotic changes. Flattening of the acetabulum and femoral head likely represents chronic insufficiency fractures. No definite acute fractures are seen. There are degenerative changes in the visualized lower lumbar spine. Xrza-qk-nojiexmc degenerative changes extend across the right sacroiliac joint and pubic symphysis. Soft tissues: Unremarkable. XR/XR hip RT 2-3V wo/w pel* [id number] IMPRESSION: There are very severe degenerative changes across the right hip joint. Flattening of the acetabulum and femoral head likely represents chronic insufficiency fractures.
--- NOTE | 2023-03-18 15:04 | PC.PHAR ---
pt states she takes care of her own medications-pt states she takes alot of otc minerals and herbs but states unsure of all the names states its stuff we have never heard of-[facility] but unsure what all they were-ext shows risperidone 0.25mg bid filled 02/26/23-divalproex sodium 125mg bid filled 02/26/23 30d/s-macrobid 100mg bid filled 02/26/23 5d/s and baclofen 5mg tid filled 02/26/23 30d/s pt states she never got-pt states she is no longer taking oxymorphone 10mg 5-10mg hs prn states she cant get ext shows last filled 02/02/23 15d/s-notes are made in the pharmacy comments
[2023-03-18 15:28] VITALS: PULSE 89; O2SAT 96
== END 2023-03-18 17:50 | disposition home or self-care (01) ==
PROVIDERS: Emergency Provider Emergency Medicine
DX: S09.8XXA Other specified injuries of head, initial encounter (principal); W05.0XXA Fall from non-moving wheelchair, initial encounter
CPT/HCPCS: 70450; 72125; 72170; 73030; 73502; 99284

== ENCOUNTER 2023-08-10 08:17 | Emergency (ER) | payer MEDICARE, OTHER, SELFPAY ==
[2023-08-10 08:30] VITALS: BP 173/93; PULSE 72; RESP 16; TEMP 37.4; O2SAT 95; BMI 23.4
--- NOTE | 2023-08-10 08:44 | XRR_ITS ---
PROCEDURE INFORMATION: Exam: XR Right Humerus Exam date and time: 08/10/2023 9:35 AM Age: 78 years old Clinical indication: Injury or trauma; Fall; Other: Pain TECHNIQUE: Imaging protocol: Radiologic exam of the right humerus. Views: 2 or more views. COMPARISON: CR (CHEST, ) 03/18/2023 2:11 PM FINDINGS: Bones/joints: No acute displaced fracture identified. Chronic degenerative changes about the glenohumeral joint. Redemonstrated tendon repair screw in the humeral head. Soft tissues: Superficial soft tissues appear within normal limits. XR/[place] [id number] IMPRESSION: 1. No acute displaced fracture identified. 2. If there is concern for acute trauma involving the right elbow proper, recommend additional imaging starting with dedicated elbow radiographs.
--- NOTE | 2023-08-10 08:44 | XRR_ITS ---
PROCEDURE INFORMATION: Exam: XR Right Forearm Exam date and time: 08/10/2023 9:31 AM Age: 78 years old Clinical indication: Injury or trauma; Fall; Other: Pain TECHNIQUE: Imaging protocol: Radiologic exam of the right forearm. Views: 2 views. COMPARISON: No relevant prior studies available. FINDINGS: Bones/joints: No acute displaced fracture identified. Chronic degenerative changes about the wrist, poorly visualized. Chronic degenerative changes about the elbow, poorly visualized. Soft tissues: Superficial soft tissues appear within normal limits. XR/XR forearm RT 2V [id number] IMPRESSION: 1. No acute displaced fracture identified. 2. If there is concern for acute trauma involving the right elbow proper, recommend additional imaging starting with dedicated elbow radiographs.
[2023-08-10 09:00] VITALS: BP 173/93; PULSE 76; RESP 16; O2SAT 95
--- NOTE | 2023-08-10 09:07 | CTR_ITS ---
PROCEDURE INFORMATION: Exam: CT Head Without Contrast Exam date and time: 08/10/2023 9:54 AM Age: 78 years old Clinical indication: Injury or trauma; Fall; Blunt trauma (contusions or hematomas); Without loss of consciousness TECHNIQUE: Imaging protocol: Computed tomography of the head without contrast. Radiation optimization: All CT scans at this facility use at least one of these dose optimization techniques: automated exposure control; mA and/or kV adjustment per patient size (includes targeted exams where dose is matched to clinical indication); or iterative reconstruction. REPORTING DATA: Count of CT and Cardiac NM exams in prior 12 months: This patient has received 2 known CTs and 0 known cardiac nuclear medicine studies in the 12 months prior to the current study. COMPARISON: CT head wo con* [id number] 03/18/2023 2:17 PM RADIATION DOSE METRICS: Total DLP (mGy-cm): 1114.38 FINDINGS: Brain: Moderate cerebral and cerebellar atrophy. Moderate nonspecific periventricular white matter disease, not significantly changed from prior. Tiny foci of hyperattenuation superior to the cerebellum on sagittal view (sagittal series 14, image 26) are seen on axial and coronal views to represent tiny dural calcifications, not significantly changed from 03/18/2023. No acute intracranial hemorrhage. Normal differentiation of duffy-white matter. No midline shift. Mild calcifications in the basal ganglia. Intracranial atherosclerotic disease. Cerebral ventricles: Stable ventricular caliber. No ventriculomegaly. Paranasal sinuses: Visualized paranasal sinuses are clear. Mastoid air cells: Mastoid air cells are clear. Bones/joints: Chronic degenerative changes about the right temporomandibular joint. No acute osseous fractures identified. Soft tissues: Superficial soft tissues are within normal limits. CT/CT head wo con* [id number] IMPRESSION: 1. No acute intracranial findings. 2. Chronic involutional changes, as above, are not significantly changed from prior.
--- NOTE | 2023-08-10 09:12 | W.ED.GENADLT ---
HPI - General Adult General: Chief complaint: General Medical Stated complaint: fall Time Seen by Provider: 08/10/23 08:39 Source: patient Mode of arrival: ambulatory History of Present Illness: 78-year-old female presents to the emergency room after falling out of her wheelchair 2 days ago she hit the right parietal portion of her head. There is no loss consciousness she has been nauseated without any vomiting since. She still has a lot of aches and pains and wanted to be evaluated. She has previously had several falls in the past. She is not on any anticoagulants she denies any loss of vision difficulty speech or swallowing. She does have difficulty with ambulation and uses a wheelchair. Associated symptoms: Deny chest pain, dyspnea or rash Review of Systems Const: Denies: fever(s) or chills Card: Denies: chest pain Resp: Denies: dyspnea GI: Denies: abdominal pain : Denies: dysuria, urinary frequency or urinary urgency Musc: Denies: neck pain or back pain Skin/Breast: Denies: rash PFSH ED PFSH: Medical History Chronic pain Social History Smoking and tobacco/nicotine status: never used tobacco/nicotine Alcohol intake: never Substance/Drug Use: never Physical Exam Const: COMMON NORMALS: no acute distress GENERAL APPEARANCE: cooperative and comfortable ORIENTATION/CONSCIOUSNESS: Yes awake, Yes oriented to person, Yes oriented to place and Yes oriented to time HENMT: COMMON NORMALS: normocephalic, atraumatic and hearing grossly normal bilaterally HEAD & SCALP: normocephalic and atraumatic Resp: COMMON NORMALS: normal respiratory effort, No retractions, No use of accessory muscles and clear to auscultation bilaterally AUSCULTATION: clear to auscultation bilaterally Cardio: COMMON NORMALS: regular rate, regular rhythm and No murmurs present (Cardio) RATE: regular rate RHYTHM: regular rhythm GI: COMMON NORMALS: Soft to palpation and No hepatosplenomegaly present AUSCULTATION: Yes normoactive bowel sounds PALPATION: Yes Soft to palpation, No Tenderness to palpation present (GI), No Guarding due to palpation present (GI) and Yes No hepatosplenomegaly present Extremity: COMMON NORMALS: normal to inspection, capillary refill normal, no clubbing, cyanosis or edema, no calf tenderness and no pedal edema Neuro: SENSORIUM/ORIENTATION: Yes oriented to person, Yes oriented to place and Yes oriented to time Skin: COMMON NORMALS: no rashes or lesions noted GENERAL SKIN EXAM: no rashes or lesions noted Course Vital Signs: Vital signs: Vital Signs Temperature 99.4 F 08/10/23 08:30 Pulse Rate 76 08/10/23 11:27 Respiratory Rate 18 08/10/23 11:27 Blood Pressure 148/93 08/10/23 10:00 Pulse Oximetry 98 08/10/23 11:27 Oxygen Delivery Me thod Room Air 08/10/23 09:00 MDM - General Adult Medical Decision Making No acute fractures. Repeat exam unremarkable no fracture of the right arm. Reviewed labs and imaging with patient discharge patient home follow-up as needed. CT head was also negative. Medical Records I reviewed the patient's medical records. Lab Data I reviewed the patient's lab results. 08/10/23 09:48 08/10/23 09:[address] 08/10/23 09:07 IMPRESSION: 1. No acute intracranial findings. 2. Chronic involutional changes, as above, are not significantly changed from prior. Humerus X-Ray 08/10/23 10:00 IMPRESSION: 1. No acute fracture or dislocation. 2. Chronic degenerative changes of the shoulder with severe narrowing of the acromial humeral joint space. This can be seen with rotator cuff injury. Forearm X-Ray 08/10/23 10:01 IMPRESSION: No acute displaced fracture identified. Laboratory Results WBC 5.28 10^3/uL (3.29-11.43) 08/10/23 09:48 RBC 4.04 10^6/uL (3.85-5.65) 08/10/23 09:48 Hgb 12.70 g/dL (11.27-16.99) 08/10/23 09:48 Hct 38.0 % (36-47) 08/10/23 09:48 MCV 94.1 fl (85-98) 08/10/23 09:48 MCH 31.4 pg (27-33) 08/10/23 09:48 MCHC 33.4 g/dL (30-55) 08/10/23 09:48 RDW 11.7 % (12.1-15.1) L 08/10/23 09:48 Plt Count 216 10^3/cmm (157-399) 08/10/23 09:48 MPV 8.3 fL (7.4-10.4) 08/10/23 09:48 Neut % (Auto) 65.8 % 08/10/23 09:48 Lymph % (Auto) 24.1 % 08/10/23 09:48 [place] % (Auto) 7.0 % 08/10/23 09:48 Eos % (Auto) 1.3 % 08/10/23 09:48 Baso % (Auto) 0.9 % 08/10/23 09:48 Neut # (Auto) 3.47 10^3/uL (1.8-7.7) 08/10/23 09:48 Lymph # (Auto) 1.3 10^3/uL (0.8-4.8) 08/10/23 09:48 [place] # (Auto) 0.4 10^3/uL (0.2-0.9) 08/10/23 09:48 Eos # (Auto) 0.1 10^3/uL (0.0-0.8) 08/10/23 09:48 Baso # (Auto) 0.1 10^3/uL (0.0-0.1) 08/10/23 09:48 Nucleated RBC % (auto) 0 % 08/10/23 09:48 Nucleated RBCs # 0.0 /100WBC 08/10/23 09:48 Sodium 141 mmol/L (136-145) 08/10/23 09:48 Potassium 3.8 mmol/L (3.5-5.1) 08/10/23 09:48 Chloride 100 mmol/L (98-107) 08/10/23 09:48 Carbon Dioxide 29 mmol/L (22-29) 08/10/23 09:48 Anion Gap 15.8 (5-19) 08/10/23 09:48 BUN 10 mg/dL (8-23) 08/10/23 09:48 Creatinine 0.6 mg/dL (0.5-0.9) 08/10/23 09:48 GFR Calculation Not Reportable 08/10/23 09:48 Glucose 96 mg/dL (65-115) 08/10/23 09:48 Calculated Osmolality 291 mOsm/kg (285-295) 08/10/23 09:48 Calcium 9.4 mg/dL (8.5-10.5) 08/10/23 09:48 Total Bilirubin 0.4 mg/dL (0.15-1.2) 08/10/23 09:48 AST 15 U/L (0-32) 08/10/23 09:48 ALT 13 U/L (0-33) 08/10/23 09:48 Alkaline Phosphatase 77 U/L (35-105) 08/10/23 09:48 Total Protein 7.1 g/dL (6.6-8.7) 08/10/23 09:48 Albumin 3.9 g/dL (3.5-5.2) 08/10/23 09:48 Globulin 3.2 g/dL (1.3-4.6) 08/10/23 09:48 Urine Color Yellow (Yellow) 08/10/23 09:40 Urine Appearance Clear (CLEAR) 08/10/23 09:40 Urine pH 5 (5-7) 08/10/23 09:40 Ur Specific [place] 1.020 (1.005-1.030) 08/10/23 09:40 Urine Protein Neg (Negative) 08/10/23 09:40 Urine Glucose (UA) Norm (Normal) 08/10/23 09:40 Urine Ketones 2+ (Negative) H 08/10/23 09:40 Urine Blood Neg (Negative) 08/10/23 09:40 Urine Nitrate Negative (Negative) 08/10/23 09:40 Urine Bilirubin 1+ (Negative) H 08/10/23 09:40 Urine Urobilinogen 1 mg/dL (Negative) H 08/10/23 09:40 Ur Leukocyte Esterase Negative (Negative) 08/10/23 09:40 All radiology interpretation(s) finalized by discharge Discharge Plan Discharge Patient Disposition: Home Clinical Impression: Fall Condition: Stable Prescriptions: No Action ondansetron HCl 4 mg tablet 4 mg PO Q6H PRN (Reason: Nausea And Vomiting) hydrocodone-acetaminophen 10-325 mg tablet 1 - 2 tab PO Q6H PRN (Reason: Pain) diazepam 10 mg tablet 10 mg PO BID PRN (Reason: Anxiety) multivitamin Tablet 1 tab PO DAILY cholecalciferol (vitamin D3) [Vitamin D3] 25 mcg (1,000 unit) Tablet 25 mcg PO DAILY vitamin K2 100 mcg Capsule 100 mcg PO DAILY Lots Of Otc Minerals And Herbs See Rx Instructions .ROUTE .COMPLEX Rx Instructions: see pharmacy comment morphine 30 mg tablet extended release 30 mg PO BID Discharge Orders: Discharge ED (Routine); Ordered 08/10/23 Ordered By: Osmany Wright Discharge Diet: Usual diet Discharge Activity: Increase activity as tolerated Patient Instructions: Opioid Safety, Pain Management Activity Restrictions/Additional Instructions: Thank you for choosing [facility] for your healthcare needs today. Please realize this is an emergency room and that we are providing you with a medical screening exam and this may not be complete and all inclusive of all the testing and or work up that you may need to determine your ailment or severity of your illness. It is very important that you follow up as instructed or that you return to the Emergency Department should you have concerns or if your condition changes or worsens in any way. Follow-up with your primary care doctor as needed increase activity as tolerated Coding Level of Care Code ED Cooler Conveyor Loader for Jamila Block
--- NOTE | 2023-08-10 09:15 | ECG_ITS ---
[facility] Test Date: 2023-08-10 Pat Name: Katia Pearson Department: Room: Gender: Female Professor Of Mathematics: : 1945 Requested By: Osmany Zamarripa Order Number: [id number] Luis MD: Joanna Perales M.D. Measurements Intervals [place] Rate: 72 P: 70 [place]: 168 QRS: 84 QRSD: 84 T: 73 QT: 389 QTc: 428 Interpretive Statements SINUS RHYTHM Compared to ECG 01/29/2022 23:00:18 Sinus bradycardia no longer present Normal EKG Electronically Signed On 08-10-2023 13:52:29 PILE HEADER by Joanna Perales M.D. [id number]
[2023-08-10 09:42] LABS: Add Urine Microscopic? NO; Charge for UA Resulting for Rev
[2023-08-10 09:54] LABS: Basophils # 0.1 10^3/uL (0.0-0.1); Basophils % 0.9 %; Eosinophils # 0.1 10^3/uL (0.0-0.8); Eosinophils % 1.3 %; Lymphocytes # 1.3 10^3/uL (0.8-4.8); Lymphocytes % 24.1 %; Mean Corpuscular HGB Conc 33.4 g/dL (30-55); Mean Corpuscular Hemoglobin 31.4 pg (27-33); Mean Corpuscular Volume 94.1 fl (85-98); Mean Platelet Volume 8.3 fL (7.4-10.4); Monocytes # 0.4 10^3/uL (0.2-0.9); Neutrophils # 3.47 10^3/uL (1.8-7.7); Neutrophils % 65.8 %; Nucleated Red Blood Cells % 0 %; Platelet Count 216 10^3/cmm (157-399); Red Blood Count 4.04 10^6/uL (3.85-5.65); Red Cell Distribution Width 11.7 % (12.1-15.1); White Blood Count 5.28 10^3/uL (3.29-11.43)
[2023-08-10 10:00] VITALS: BP 148/93; PULSE 76; RESP 18; O2SAT 98
--- NOTE | 2023-08-10 10:00 | XRR_ITS ---
PROCEDURE INFORMATION: Exam: XR Left Humerus Exam date and time: 08/10/2023 9:35 AM Age: 78 years old Clinical indication: Injury or trauma; Fall; Other: Pain TECHNIQUE: Imaging protocol: Radiologic exam of the left humerus. Views: 2 or more views. COMPARISON: CT cervical spin wo con* [id number] 03/18/2023 2:17 PM FINDINGS: Bones/joints: Chronic degenerative changes of the shoulder with severe narrowing of the acromial humeral joint space. No acute displaced fracture identified. Soft tissues: Superficial soft tissues are normal in appearance. XR/[place] [id number] IMPRESSION: 1. No acute fracture or dislocation. 2. Chronic degenerative changes of the shoulder with severe narrowing of the acromial humeral joint space. This can be seen with rotator cuff injury.
[2023-08-10 10:01] LABS: Urine Appearance Clear (CLEAR); Urine Color Yellow (Yellow); pH Urine 5 (5-7)
--- NOTE | 2023-08-10 10:01 | XRR_ITS ---
PROCEDURE INFORMATION: Exam: XR Left Forearm Exam date and time: 08/10/2023 9:31 AM Age: 78 years old Clinical indication: Injury or trauma; Fall; Other: Pain; Additional info: Fall out of wheelchair TECHNIQUE: Imaging protocol: Radiologic exam of the left forearm. Views: 2 views. COMPARISON: No relevant prior studies available. FINDINGS: Bones/joints: No acute displaced fracture identified. Chronic degenerative changes about the wrist, poorly visualized. Chronic degenerative changes about the elbow, poorly visualized. Soft tissues: Superficial soft tissues are normal in appearance. XR/XR forearm LT 2V [id number] IMPRESSION: No acute displaced fracture identified.
[2023-08-10 10:02] LABS: Bilirubin Urine 1+ (Negative); Blood Urine Neg (Negative); Glucose Urine UA Norm (Normal); Ketones Urine 2+ (Negative); Leukocyte Esterase Urine Negative (Negative); Nitrate Urine Negative (Negative); Protein Urine Neg (Negative); Urobilinogen Urine 1 mg/dL (Negative)
[2023-08-10 10:13] LABS: Alanine Aminotransferase 13 U/L (0-33); Albumin Level 3.9 g/dL (3.5-5.2); Alkaline Phosphatase 77 U/L (35-105); Anion Gap 15.8 (5-19); Aspartate Amino Transferase 15 U/L (0-32); Blood Urea Nitrogen 10 mg/dL (8-23); Calcium 9.4 mg/dL (8.5-10.5); Carbon Dioxide 29 mmol/L (22-29); Chloride 100 mmol/L (98-107); Globulin 3.2 g/dL (1.3-4.6); Glucose 96 mg/dL (65-115); Osmolality Calculated 291 mOsm/kg (285-295); Potassium 3.8 mmol/L (3.5-5.1); Sodium 141 mmol/L (136-145); Total Bilirubin 0.4 mg/dL (0.15-1.2); Total Protein 7.1 g/dL (6.6-8.7)
[2023-08-10] MEDS: sodium chloride 0.9% 500 ML 999 ML IV (10:43)
--- NOTE | 2023-08-10 11:15 | PC.NURSE ---
Patient entered ER via EMS with no pants. Green pants provided to patient.
[2023-08-10 11:27] VITALS: PULSE 76; RESP 18; O2SAT 98
== END 2023-08-10 11:28 | disposition home or self-care (01) ==
PROVIDERS: Emergency Provider Family Medicine
DX: Z04.3 Encounter for examination and observation following other accident (principal); W05.0XXA Fall from non-moving wheelchair, initial encounter
CPT/HCPCS: 36415; 70450; 73060; 73090; 80053; 81003; 85025; 93005; 93010; 99285; J7040

== ENCOUNTER 2023-09-07 12:51 | Emergency (ER) | payer MEDICARE, OTHER, SELFPAY ==
--- NOTE | 2023-09-07 05:18 | ECG_ITS ---
[facility] Test Date: 2023-09-07 Pat Name: Katia Pearson Department: Room: Gender: Female Saw Edge Fuser Circular: : 1945 Requested By: Osmany Zamarripa Order Number: [id number] Luis MD: ePrla Zapata M.D. Measurements Intervals [place] Rate: 89 P: 66 [place]: 162 QRS: 55 QRSD: 85 T: 19 QT: 359 QTc: 439 Interpretive Statements SINUS RHYTHM Compared to ECG 08/10/2023 09:15:13 No significant changes Electronically Signed On 09-07-2023 19:24:41 DIRECTOR RELIGIOUS EDUCATION by Perla Zapata M.D. [email or web address] [facility] center[facility]/store/[id number]
--- NOTE | 2023-09-07 12:58 | XRR_ITS ---
PROCEDURE INFORMATION: Exam: XR Chest Exam date and time: 09/07/2023 1:27 PM Age: 78 years old Clinical indication: Cough and dyspnea; Additional info: Dyspnea/cough TECHNIQUE: Imaging protocol: Radiologic exam of the chest. Views: 1 view. COMPARISON: CR XR chest 1V portable [id number] 01/29/2022 11:09 PM FINDINGS: Lungs: Small calcified granuloma left lung. Possible new 1 cm pulmonary nodule in the lateral right mid lung. Alternatively, this could be a small focus of new atelectasis and/or pneumonitis. Otherwise, unremarkable. Pleural spaces: Unremarkable. No pleural effusion. No pneumothorax. Heart/Mediastinum: Unremarkable. No cardiomegaly. Bones/joints: Moderate scoliosis with mild and moderate multilevel spondylosis. Bilateral shoulder arthritis. XR/XR chest 1V portable [id number] IMPRESSION: Possible new pulmonary nodule versus focal atelectasis and/or pneumonitis right mid lung. Consider chest CT.
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
[2023-09-07 13:12] VITALS: BP 127/75; PULSE 85; RESP 18; TEMP 36.7; O2SAT 95
--- NOTE | 2023-09-07 13:15 | ECG_ITS ---
[facility] Test Date: 2023-09-07 Pat Name: Katia Pearson Department: Room: Gender: Female Health Services Director: : 1945 Requested By: Osmany Zamarripa Order Number: [id number] Luis MD: Perla Zapata M.D. Measurements Intervals [place] Rate: 78 P: 73 NM: 170 QRS: 65 QRSD: 84 T: 47 QT: 372 QTc: 424 Interpretive Statements SINUS RHYTHM Compared to ECG 08/10/2023 09:15:13 No significant changes Electronically Signed On 09-07-2023 19:28:12 PLATFORM WORKER by Perla Zapata M.D. [id number]
--- NOTE | 2023-09-07 13:31 | XRR_ITS ---
PROCEDURE INFORMATION: Exam: XR Right Hip Exam date and time: 09/07/2023 1:40 PM Age: 78 years old Clinical indication: Hip pain; Right hip TECHNIQUE: Imaging protocol: Radiologic exam of the right hip. Views: 1 view hip with pelvis when performed. 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 Mild left hip arthritis. Moderate and severe spondylosis in the visualized lumbar spine. Otherwise, unremarkable. Soft tissues: Otherwise, unremarkable. XR/XR hip RT 2-3V wo/w pel* [id number] IMPRESSION: Unchanged severe arthritis right hip.
--- NOTE | 2023-09-07 13:44 | XRR_ITS ---
PROCEDURE INFORMATION: Exam: XR Right Shoulder Exam date and time: 09/07/2023 2:11 PM Age: 78 years old Clinical indication: Pain; Shoulder; Right TECHNIQUE: Imaging protocol: Radiologic exam of the right shoulder. Views: 2 or more views. COMPARISON: CR (CHEST, ) 03/18/2023 2:11 PM FINDINGS: Bones/joints: Unchanged severe right shoulder arthritis. Unchanged surgical screw in the right humeral head. No obvious acute findings. Soft tissues: Otherwise, unremarkable. XR/XR shoulder RT min 2V* [id number] IMPRESSION: Unchanged severe arthritis without obvious acute abnormality.
[2023-09-07 14:02] LABS: Basophils % 0.7 %; Eosinophils % 0.3 %; Hematocrit 37.8 % (36-47); Lymphocytes # 1.1 10^3/uL (0.8-4.8); Lymphocytes % 18.4 %; Mean Corpuscular HGB Conc 33.3 g/dL (30-55); Mean Corpuscular Hemoglobin 30.6 pg (27-33); Mean Corpuscular Volume 91.7 fl (85-98); Monocytes # 0.4 10^3/uL (0.2-0.9); Monocytes % 6.6 %; Neutrophils # 4.11 10^3/uL (1.8-7.7); Neutrophils % 71.9 %; Nucleated Red Blood Cells % 0 %; Platelet Count 281 10^3/cmm (157-399); Red Blood Count 4.12 10^6/uL (3.85-5.65); Red Cell Distribution Width 11.8 % (12.1-15.1); White Blood Count 5.72 10^3/uL (3.29-11.43)
[2023-09-07 14:20] LABS: Alanine Aminotransferase 12 U/L (0-33); Albumin Level 3.7 g/dL (3.5-5.2); Alkaline Phosphatase 71 U/L (35-105); Anion Gap 17.8 (5-19); Aspartate Amino Transferase 16 U/L (0-32); Blood Urea Nitrogen 12 mg/dL (8-23); Calcium 8.6 mg/dL (8.5-10.5); Carbon Dioxide 30 mmol/L (22-29); Chloride 98 mmol/L (98-107); Globulin 2.9 g/dL (1.3-4.6); Glucose 96 mg/dL (65-115); Osmolality Calculated 294 mOsm/kg (285-295); Potassium 3.8 mmol/L (3.5-5.1); Sodium 142 mmol/L (136-145); Total Bilirubin 0.4 mg/dL (0.15-1.2); Total Protein 6.6 g/dL (6.6-8.7)
[2023-09-07 14:24] LABS: Add Urine Microscopic? NO; Charge for UA Resulting for Rev
[2023-09-07] MEDS: ondansetron 2 mg/ML SDV 2 mL 4 MG IVP (14:57)
[2023-09-07 15:08] LABS: Bilirubin Urine 1+ (Negative); Blood Urine Neg (Negative); Glucose Urine UA Norm (Normal); Ketones Urine 2+ (Negative); Leukocyte Esterase Urine Negative (Negative); Nitrate Urine Negative (Negative); Protein Urine Neg (Negative); Specific Gravity, Urine 1.015 (1.005-1.030); Urine Appearance Clear (CLEAR); Urine Color Yellow (Yellow); Urobilinogen Urine 1 mg/dL (Negative); pH Urine 5 (5-7)
[2023-09-07 16:50] LABS: Acetaminophen 18.1 ug/mL (10-30); Thyroid Stimulating Hormone 0.57 uIU/mL (0.27-4.20)
[2023-09-07 16:51] LABS: Alcohol Level < 10 mg/dL (0-10); Salicylate < 0.3 mg/dL (3-10)
--- NOTE | 2023-09-07 17:08 | PC.NURSE ---
96 hour hold rights read and reviewed with patient. Patient upset we placed her on a hold and stated You just want to get more money, this is why your doing this. Patient did verbalize understandings and left copy at the bedside.
[2023-09-07 17:35] LABS: Amphetamines Screen Urine Negative (Negative); Barbiturates Screen Urine Negative (Negative); Benzodiazepines Screen Urine Positive (Negative); Cocaine Screen Urine Negative (Negative); Opiate Screen Urine Positive (Negative); PCP Screen Urine Negative (Negative); THC Screen Urine Positive (Negative)
[2023-09-07 20:31] VITALS: BP 128/77; PULSE 85; RESP 16; O2SAT 95
[2023-09-07 21:15] VITALS: BP 128/77; PULSE 85; RESP 16; TEMP 36.7; O2SAT 95
--- NOTE | 2023-09-07 21:24 | PC.NURSE ---
Upon discharging pt, pt states to RN, The medics that brought me here said that they would give you my medications. Upon arrival to ED, pt only had clothing on her body and a small zipper bag with her in the bed. RN stated to pt, Are you talking about your actual pills or a medication list? Pt states to RN, No, I am referring to my pills. The medics said they would give them to you guys. RN was never given medications by [facility]. [facility] never shared with this RN that pt had physical bottles of medication on her.UC called security asking if they had any pt belongings. Security checked and denied. HS called if any pt medications were stored in the [facility]. HS checked and denied. RN searched room, pt pockets, and pt bag that is still on the bed. No medications found. Paper medication list found. RN spoke to family regarding this. Family believed that the medication she is referring to is at her house and do not express concerns for medication being lost. Pt was brought to ED by [facility]. RN informed both pt and family that [facility] brought her and that they could contact them regarding the medications. Family verbalized that they would do that if they did not find the medications at her house, which they said they likely would find them at her house. Pt discharged home with family.
== END 2023-09-07 21:16 | disposition home or self-care (01) ==
PROVIDERS: Family Medicine; Emergency Provider Emergency Medicine
DX: R45.851 Suicidal ideations (principal)
CPT/HCPCS: 36415; 71045; 73030; 73502; 80053; 80306; 80307; 81003; 84443; 85025; 93005; 96374; 99285; J2405